=== PATIENT | female | born 1990 | race Caucasian/White ===

== ENCOUNTER 2017-07-29 21:32 | Emergency (ER) | payer SELFPAY | END 2017-07-29 23:02 | disposition left against medical advice (07) | LOC: ED 21:32 | DX: R07.9 Chest pain, unspecified (principal); Z53.21 Procedure and treatment not carried out due to patient leaving prior to being seen by health care provider | CPT/HCPCS: 93005; 93010 ==

== ENCOUNTER 2017-08-23 19:29 | Emergency (ER) | payer SELFPAY | END 2017-08-23 19:45 | disposition left against medical advice (07) | LOC: ED 19:29 | DX: M54.9 Dorsalgia, unspecified (principal); Z53.21 Procedure and treatment not carried out due to patient leaving prior to being seen by health care provider ==

== ENCOUNTER 2018-08-29 12:56 | Emergency (ER) | payer BC ==
--- NOTE | 2018-08-29 13:09 | Emergency Department Report ---
Blank Doc - Documentation Documentation: 28 y o female presents to Ed cc of lower back pain x 2 days ua,upt,lumbar xray
[2018-08-29 13:46] LABS: Bilirubin,Urine NEG (Negative); Blood,Urine NEG (Negative); Color,Urine Amber (Yellow); HCG Qualitative,Urine Negative (Negative); Mucus,Urine FEW /HPF; Protein,Urine <15 mg/dL mg/dL (Negative); Urobilinogen,Urine < 2.0 mg/dL (<2.0); WBC,Urine < 1.0 /HPF (0.0-6.0)
--- NOTE | 2018-08-29 14:44 | XRay Report ---
AP AND LATERAL LUMBOSACRAL SPINE: Impression: Low back pain. The vertebral bodies are well mineralized and normal in alignment and vertebral height with well preserved interspace distances. Mild diffuse facet arthropathy is identified throughout the lumbar spine. IMPRESSION: Mild diffuse facet arthropathy. No acute process.
[2018-08-29] MEDS ORDERED: TORADOL IM ONE (15:01)
[2018-08-29] MEDS ORDERED: TORADOL ONE (15:04)
[2018-08-29] MEDS ORDERED: PERCOCET 5/325 PO STA (15:36)
[2018-08-29] MEDS ORDERED: ROCEPHIN IM ONE (15:36)
[2018-08-29] MEDS ORDERED: XYLOCAINE 1% MPF 5 mL INFILTRATI ONE (15:36)
--- NOTE | 2018-08-29 18:01 | Emergency Department Report ---
ED Female HPI - General Chief complaint: Back Pain/Injury Stated complaint: LOWER BACK PAIN Time Seen by Provider: 08/29/18 13:02 Source: patient Mode of arrival: Ambulatory Limitations: No Limitations - Related Data Previous Rx's Medication Instructions Recorded Last Taken Type Ciprofloxacin HCl [Ciprofloxacin 500 mg PO Q12HR #20 tab 08/29/18 Unknown Rx TAB] Ketorolac [Toradol] 10 mg PO Q6H PRN #14 tablet 08/29/18 Unknown Rx Phenazopyridine [Pyridium] 200 mg PO TID #9 tab 08/29/18 Unknown Rx Allergies Allergy/AdvReac Type Severity Reaction Status Date / Time Unable to Assess Allergy Verified 08/29/18 12:59 ED Review of Systems ROS: Stated complaint: LOWER BACK PAIN Other details as noted in HPI Constitutional: denies: chills, fever Eyes: denies: eye pain, eye discharge, vision change ENT: denies: ear pain, throat pain Respiratory: denies: cough, shortness of breath, wheezing Cardiovascular: denies: chest pain, palpitations Endocrine: no symptoms reported Gastrointestinal: denies: abdominal pain, nausea, diarrhea Genitourinary: denies: urgency, dysuria, discharge Musculoskeletal: denies: back pain, joint swelling, arthralgia Skin: denies: rash, lesions Neurological: denies: headache, weakness, paresthesias Psychiatric: denies: anxiety, depression Hematological/Lymphatic: denies: easy bleeding, easy bruising ED Past Medical Hx - Past Medical History Previous Medical History?: No - Surgical History Past Surgical History?: No - Social History Smoking Status: Never Smoker - Medications Home Medications: Home Medications Medication Instructions Recorded Confirmed Last Taken Type Ciprofloxacin HCl [Ciprofloxacin 500 mg PO Q12HR #20 tab 08/29/18 Unknown Rx TAB] Ketorolac [Toradol] 10 mg PO Q6H PRN #14 tablet 08/29/18 Unknown Rx Phenazopyridine [Pyridium] 200 mg PO TID #9 tab 08/29/18 Unknown Rx ED Physical Exam - General Limitations: No Limitations General appearance: alert, in no apparent distress - Head Head exam: Present: atraumatic, normocephalic - Eye Eye exam: Present: normal appearance, PERRL, EOMI Pupils: Present: normal accommodation - ENT ENT exam: Present: normal exam, normal orophraynx, mucous membranes moist, TM's normal bilaterally - Neck Neck exam: Present: normal inspection, full ROM - Respiratory Respiratory exam: Present: normal lung sounds bilaterally. Absent: respiratory distress, rales, rhonchi, chest wall tenderness, accessory muscle use, decreased breath sounds - Cardiovascular Cardiovascular Exam: Present: regular rate, normal rhythm. Absent: systolic murmur, diastolic murmur, rubs, gallop - GI/Abdominal GI/Abdominal exam: Present: soft, normal bowel sounds - Extremities Exam Extremities exam: Present: normal inspection - Back Exam Back exam: Present: normal inspection, CVA tenderness (R), paraspinal tenderness (tenderness over the right renal region). Absent: muscle spasm, vertebral tenderness - Neurological Exam Neurological exam: Present: alert, oriented X3, CN II-XII intact, normal gait - Psychiatric Psychiatric exam: Present: normal affect, normal mood - Skin Skin exam: Present: warm, dry, intact, normal color. Absent: rash, diaphoretic, erythema, urticaria ED Course Vital Signs 08/29/18 08/29/18 08/29/18 13:05 15:06 17:00 Temperature 97.9 F Pulse Rate 78 Respiratory 18 20 18 Rate Blood Pressure 149/84 O2 Sat by Pulse 99 Oximetry Critical care attestation.: If time is entered above; I have spent that time in minutes in the direct care of this critically ill patient, excluding procedure time. ED Disposition Clinical Impression: UTI (urinary tract infection), Back pain Disposition: - TO HOME OR SELFCARE Is pt being admited?: No Does the pt Need Aspirin: No Condition: Stable Instructions: Urinary Tract Infection in Women (ED), Acute Low Back Pain (ED) Prescriptions: Ciprofloxacin HCl [Ciprofloxacin TAB] 500 mg PO Q12HR #20 tab Phenazopyridine [Pyridium] 200 mg PO TID #9 tab Ketorolac [Toradol] 10 mg PO Q6H PRN #14 tablet PRN Reason: Pain Referrals: OSEAS ELDRIDGE MD [Primary Care Provider] - 3-5 Days
[2018-08-29 18:05] VITALS: BP 138/72
== END 2018-08-29 18:05 | disposition home or self-care (01) ==
LOC: ED 12:56
DX: N39.0 Urinary tract infection, site not specified (principal)
CPT/HCPCS: 72100; 81001; 81025; 96372; 99284; J0696; J1885

== ENCOUNTER 2018-09-01 22:34 | Emergency (ER) | payer BC ==
[2018-09-01] MEDS ORDERED: TORADOL IV ONE (23:20)
[2018-09-01] MEDS ORDERED: ZOFRAN IV ONE (23:20)
[2018-09-01] MEDS ORDERED: MORPHINE IV ONE (23:20)
[2018-09-01] MEDS ORDERED: NACL 0.9% 1000 ML 1,000 ML IV ONE (23:20)
--- NOTE | 2018-09-01 23:22 | Emergency Department Report ---
ED Female HPI - General Chief complaint: Urogenital-Female Stated complaint: BLOOD IN URINE Time Seen by Provider: 09/01/18 23:19 Source: patient Mode of arrival: Ambulatory Limitations: No Limitations - History of Present Illness Initial comments: Ms. Pierce is a 28-year-old female who presents with lower back pain and hematuria. She was diagnosed with UTI 3 days ago in our emergency department. She has nausea without fever. Severe lower back pain. Pain does not radiate. Pain is constant. Pain is worsened over the last several days. MD Complaint: other (hematuria lower back pain) -: Gradual Radiation: other (central lower) Severity: severe Quality: sharp Consistency: constant Improves with: none Worsens with: none Associated Symptoms: hematuria - Related Data Previous Rx's Medication Instructions Recorded Last Taken Type Ciprofloxacin HCl [Ciprofloxacin 500 mg PO Q12HR #20 tab 08/29/18 Unknown Rx TAB] Ketorolac [Toradol] 10 mg PO Q6H PRN #14 tablet 08/29/18 Unknown Rx Phenazopyridine [Pyridium] 200 mg PO TID #9 tab 08/29/18 Unknown Rx HYDROcodone/APAP 5-325 [Marshall 1 each PO Q6HR PRN #10 tablet 09/02/18 Unknown Rx 5/325] Promethazine [Phenergan] 25 mg PO Q6HR PRN #10 tab 09/02/18 Unknown Rx Allergies Allergy/AdvReac Type Severity Reaction Status Date / Time No Known Allergies Allergy Unverified 09/01/18 22:48 ED Review of Systems ROS: Stated complaint: BLOOD IN URINE Other details as noted in HPI Comment: All other systems reviewed and negative Constitutional: denies: fever, malaise Respiratory: denies: cough Cardiovascular: denies: chest pain ED Past Medical Hx - Past Medical History Previous Medical History?: Yes Additional medical history: Morbid Obesity - Surgical History Past Surgical History?: No - Social History Smoking Status: Never Smoker Substance Use Type: None - Medications Home Medications: Home Medications Medication Instructions Recorded Confirmed Last Taken Type Ciprofloxacin HCl [Ciprofloxacin 500 mg PO Q12HR #20 tab 08/29/18 Unknown Rx TAB] Ketorolac [Toradol] 10 mg PO Q6H PRN #14 tablet 08/29/18 Unknown Rx Phenazopyridine [Pyridium] 200 mg PO TID #9 tab 08/29/18 Unknown Rx HYDROcodone/APAP 5-325 [Marshall 1 each PO Q6HR PRN #10 tablet 09/02/18 Unknown Rx 5/325] Promethazine [Phenergan] 25 mg PO Q6HR PRN #10 tab 09/02/18 Unknown Rx ED Physical Exam - General Limitations: No Limitations General appearance: alert, in no apparent distress, other (appears uncomfortable but nontoxic) - Head Head exam: Present: atraumatic, normocephalic - Eye Eye exam: Present: normal appearance - ENT ENT exam: Present: mucous membranes moist - Neck Neck exam: Present: normal inspection, full ROM - Respiratory Respiratory exam: Present: normal lung sounds bilaterally. Absent: respiratory distress, wheezes, rales, rhonchi - Cardiovascular Cardiovascular Exam: Present: regular rate, normal rhythm, normal heart sounds. Absent: systolic murmur, diastolic murmur, rubs, gallop - GI/Abdominal GI/Abdominal exam: Present: soft, normal bowel sounds. Absent: distended, tenderness, guarding, rebound - Extremities Exam Extremities exam: Present: normal inspection - Back Exam Back exam: Present: normal inspection - Neurological Exam Neurological exam: Present: alert, oriented X3 - Psychiatric Psychiatric exam: Present: normal affect, normal mood - Skin Skin exam: Present: warm, dry, intact, normal color. Absent: rash ED Course Vital Signs 09/01/18 09/01/18 09/02/18 22:39 22:44 00:01 Temperature 98.5 F 98.5 F Pulse Rate 80 71 65 Respiratory 18 18 11 L Rate Blood Pressure 143/77 143/77 132/58 O2 Sat by Pulse 99 100 Oximetry 09/02/18 09/02/18 00:31 00:45 Temperature Pulse Rate 65 62 Respiratory 21 18 Rate Blood Pressure 129/76 129/76 O2 Sat by Pulse 97 99 Oximetry ED Medical Decision Making - Lab Data Result diagrams: 09/01/18 22:54 09/01/18 22:51 - Radiology Data Radiology results: report reviewed CT abdomen and pelvis with IV contrast no acute process according to radiology report - Medical Decision Making Ms. Pierce presents with central back pain and hematuria. No evidence of pyelonephritis or renal colic. Possibly partially treated UTI. Encouraged continued use of antibiotics. Prescribed Marshall and promethazine for pain. Given referral to outside clinic Possibly musculoskeletal pain Critical care attestation.: If time is entered above; I have spent that time in minutes in the direct care of this critically ill patient, excluding procedure time. ED Disposition Clinical Impression: Back pain, Hematuria, UTI (urinary tract infection) Disposition: TO HOME OR SELFCARE Is pt being admited?: No Does the pt Need Aspirin: No Condition: Stable Instructions: Acute Low Back Pain (ED), Acute Hematuria (ED) Prescriptions: HYDROcodone/APAP 5-325 [Marshall 5/325] 1 each PO Q6HR PRN #10 tablet PRN Reason: Pain Promethazine [Phenergan] 25 mg PO Q6HR PRN #10 tab PRN Reason: Nausea Referrals: OSEAS ELDRIDGE MD [Primary Care Provider] - 3-5 Days
[2018-09-01 23:35] LABS: Basophils % (Auto) 0.2 % (0.0-1.8); Eosinophils # (Auto) 0.1 K/mm3 (0.0-0.4); Eosinophils % (Auto) 0.8 % (0.0-4.3); Hematocrit 34.9 % (30.3-42.9); Hemoglobin 12.2 gm/dl (10.1-14.3); Lymphocytes # (Auto) 3.6 K/mm3 (1.2-5.4); Lymphocytes % (Auto) 34.7 % (13.4-35.0); Mean Corpuscular HGB Conc 35 % (30-34); Mean Corpuscular Volume 84 fl (79-97); Monocytes # (Auto) 0.8 K/mm3 (0.0-0.8); Monocytes % (Auto) 8.1 % (0.0-7.3); Platelet Count 329 K/mm3 (140-440); Red Blood Count 4.15 M/mm3 (3.65-5.03); Red Cell Distribution Width 15.7 % (13.2-15.2)
[2018-09-01 23:47] LABS: BUN/Creatinine Ratio 21; Blood Urea Nitrogen 17 mg/dL (7-17); Calcium 9.7 mg/dL (8.4-10.2); Hemolysis Index 0
[2018-09-02 00:06] LABS: Bilirubin,Urine NEG (Negative); Blood,Urine NEG (Negative); Color,Urine Amber (Yellow); Mucus,Urine 2+ /HPF; Protein,Urine <15 mg/dL mg/dL (Negative)
[2018-09-02 00:24] LABS: HCG Qualitative,Urine Negative (Negative)
--- NOTE | 2018-09-02 01:41 | Cat Scan Report ---
PROCEDURE: CT ABDOMEN PELVIS WO CON TECHNIQUE: Computerized axial tomography of the abdomen and pelvis was performed without intravenous contrast. This study is performed without intravascular contrast material and its sensitivity for ab dominal and pelvic pathology, including neoplasms, inflammation, abscess, free fluid, thrombosis, art erial dissection and infarction, is reduced compared with a contrast enhanced study. CT DOSE LENGTH PRODUCT: 1903.6 mGycm HISTORY: lower back pain and hematuria COMPARISONS: None . FINDINGS: Visualized lower thorax: No significant abnormality. There is 2 mm nodular density at the left lung b ase which could be an incidental granuloma. Liver: Normal size and attenuation. Spleen: Normal size and attenuation. Gallbladder and biliary system: Normal. Pancreas: Normal. Adrenals: Normal. Kidneys: There are no kidney stones or ureteral stones. There is no hydronephrosis.. GI tract: There is no bowel obstruction, colitis or enteritis. The appendix is normal. . Lymph nodes and mesentery: Normal. Vasculature: Normal.. Bladder: Normal. Reproductive organs: Uterus and ovaries are unremarkable.. Peritoneum: There is minimal free pelvic fluid. There is no free air, abscess or adenopathy.. Musculoskeletal structures: No significant abnormality. IMPRESSION: There are no kidney stones or ureteral stones. There is no hydronephrosis. There is no bowel obstruction, colitis or enteritis. The appendix is normal. Uterus and ovaries are unremarkable. There is minimal free pelvic fluid. There is no free air, abscess or adenopathy. This document is electronically signed by Shawn Kaye MD., September 02 2018 01:38:57 AM ET
[2018-09-02 02:06] VITALS: BP 118/60
== END 2018-09-02 02:06 | disposition home or self-care (01) ==
LOC: ED 22:34
DX: N39.0 Urinary tract infection, site not specified (principal); E66.01 Morbid (severe) obesity due to excess calories; Z79.899 Other long term (current) drug therapy
CPT/HCPCS: 36415; 74176; 80048; 81001; 81025; 85025; 96374; 96375; 99284; J1885; J2270; J2405; J7030